=== PATIENT | male | born 1970 | race Caucasian/White ===

== ENCOUNTER 2020-05-12 23:35 | Emergency (ER) | payer MEDICAID ==
[~2020-05-12] VITALS: Ht 172.7 cm; Wt 90.7 kg
--- NOTE | 2020-05-12 23:51 | NUR ---
PT BIB FROM STREET C/O SUICIDAL IDEATION +PLAN TO CUT WRISTS. PT DENIES HI. PT AAOX4, VSS, RESPIRATIONS EVEN AND UNLABORED ON RA W/ NAD NOTED. PT CHANGED INTO GOWN, BELONGINGS PLACED TO LOCKER, CONNECTED TO THE MONITOR AND POX. SUICIDE PRECAUTIONS IMPLEMENTED. SITTER AT BEDSIDE FOR SAFETY
--- NOTE | 2020-05-13 00:01 | NUR ---
URINE COLLECTED AND SENT TO LAB
[2020-05-13 00:14] LABS: BASOPHILS # (AUTO) 0.1 /CMM (0.0-0.2); BASOPHILS % (AUTO) 0.7 % (0.0-2.0); EOSINOPHILS % (AUTO) 0.3 % (0.0-6.0); HEMATOCRIT 42 % (39-51); HEMOGLOBIN 13.8 g/dL (13.5-17.5); LYMPHOCYTES # (AUTO) 2.2 /CMM (0.8-4.8); LYMPHOCYTES % (AUTO) 16.8 % (20.0-44.0); MEAN CORPUSCULAR HGB CONC 33 g/dl (31.0-36.0); MEAN CORPUSCULAR VOLUME 87 fL (80-96); MONOCYTES # (AUTO) 1.1 /CMM (0.1-1.30); MONOCYTES % (AUTO) 8.6 % (2.0-12.0); NEUTROPHILS # (AUTO) 9.7 /CMM (1.8-8.9); NEUTROPHILS % (AUTO) 73.6 % (43.0-81.0); PLATELET COUNT (AUTO) 214 /CMM (150-450); RED BLOOD CELL COUNT(AUTO) 4.86 MIL/uL (4.5-6.0); WHITE BLOOD COUNT (AUTO) 13.1 K/uL (4.3-11.0)
[2020-05-13 00:15] LABS: APPEARANCE,URINE CLEAR (CLEAR); BILIRUBIN,URINE NEGATIVE (NEGATIVE); BLOOD, URINE NEGATIVE Ery/uL (NEGATIVE); COLOR,URINE YELLOW (YELLOW); KETONES,URINE NEGATIVE (NEGATIVE); LEUKOCYTE ESTERASE ,URINE NEGATIVE (NEGATIVE); NITRITE, URINE NEGATIVE (NEGATIVE); PROTEIN,URINE 30 mg/dl (NEGATIVE); UGLUCOSE NEGATIVE (NEGATIVE)
[2020-05-13 00:26] LABS: BACTERIA,URINE None seen /HPF (None Seen); RBC,URINE 0-2 /HPF (0-2); WBC,URINE 0-2 /HPF (0-3)
[2020-05-13 00:27] LABS: SQUAMOUS EPITHELIAL CELL,UR Few /HPF (None Seen)
[2020-05-13 01:01] LABS: CALCIUM, SERUM 8.8 mg/dL (8.5-10.1); CARBON DIOXIDE 26 mmol/L (21-32); CHLORIDE 105 mmol/L (98-107); CREATININE 1.2 mg/dL (0.6-1.3); GLUCOSE 113 mg/dL (74-106); POTASSIUM 3.5 mmol/L (3.5-5.1); SODIUM SERUM 141 mmol/L (136-145); UREA NITROGEN, BLOOD 25 mg/dL (7-18)
[2020-05-13 01:08] LABS: ALANINE AMINOTRANSFERASE 102 U/L (12-78); ALCOHOL, BLOOD < 3 mg/dL (0-0); ALKALINE PHOSPHATASE 88 U/L (46-116); ASPARTATE AMINOTRANSFERASE 128 U/L (15-37); BILIRUBIN,DIRECT 0.2 mg/dL (0.0-0.2); BILIRUBIN,TOTAL 0.7 mg/dL (0.2-1.0); TOTAL PROTEIN, SERUM 7.8 g/dL (6.4-8.2)
[2020-05-13 01:09] LABS: ACETAMINOPHEN 0 ug/ml (10-30); SALICYLATE 1.3 mg/dL (2.8-20.0)
--- NOTE | 2020-05-13 02:03 | NUR ---
PT DENIES SI/HI
--- NOTE | 2020-05-13 02:31 | NUR ---
Patient discharged to home in stable condition. Written and verbal after care instructions given. Patient verbalizes understanding of instruction. Pt ambulated with steady gait. vss. Denies SI and HI. aware.
[2020-05-13 05:04] VITALS: BP 131/79
== END 2020-05-13 05:04 | disposition home or self-care (01) ==
LOC: ER 23:39
DX: R45.851 Suicidal ideations (principal); I10 Essential (primary) hypertension; E11.9 Type 2 diabetes mellitus without complications; F20.9 Schizophrenia, unspecified
CPT/HCPCS: 36415; 80048; 80076; 80305; 80307; 80329; 81001; 85025; 99285; G0480; 81000-TC

== ENCOUNTER 2020-07-19 06:51 | Emergency (ER) | payer MEDICAID, OTHER ==
[~2020-07-19] VITALS: Ht 170.2 cm; Wt 79.4 kg
[2020-07-19] MEDS ORDERED: KETOROLAC TROMETHAMINE 15 MG/ML VIAL ONE (08:11)
[2020-07-19] MEDS ORDERED: LORAZEPAM 0.5 MG TABLET ONE (08:11)
[2020-07-19] MEDS: KETOROLAC TROMETHAMINE INJ 30 MG/ML VIAL IM ONE (08:17)
[2020-07-19] MEDS: LORAZEPAM 0.5 MG TABLET PO ONE (08:17)
--- NOTE | 2020-07-19 08:47 | NUR ---
Patient a/ox4, breathing even and unlabored, no sob noted. Ambulatory with steady gait. Patient given written and verbal discharge instructions. Patient verbalizes understanding of instructions. Patient is ambulatory with steady gait. Refuses offer of senior care placement. Patient given list of available shelters in surrounding area.
[2020-07-19 09:07] VITALS: BP 158/95
== END 2020-07-19 09:07 | disposition home or self-care (01) ==
LOC: ER 06:51
DX: M54.41 Lumbago with sciatica, right side (principal); G89.29 Other chronic pain; M25.571 Pain in right ankle and joints of right foot; F15.10 Other stimulant abuse, uncomplicated; R45.1 Restlessness and agitation; I10 Essential (primary) hypertension; E11.9 Type 2 diabetes mellitus without complications; Z88.6 Allergy status to analgesic agent
CPT/HCPCS: 73610; 73620; 96372; 99284; J1885

== ENCOUNTER 2020-07-21 06:03 | Emergency (ER) | payer OTHER ==
[~2020-07-21] VITALS: Ht 172.7 cm; Wt 72.6 kg
[2020-07-21] MEDS ORDERED: KETOROLAC TROMETHAMINE INJ 30 MG/ML VIAL ONE (06:27)
[2020-07-21] MEDS ORDERED: CLONIDINE HCL 0.1 MG TABLET ONE (06:27)
[2020-07-21] MEDS ORDERED: KETOROLAC TROMETHAMINE INJ 60 MG/2 ML VIAL IM ONE (06:30)
[2020-07-21] MEDS ORDERED: CLONIDINE HCL 0.1 MG TABLET PO ONE (06:30)
--- NOTE | 2020-07-21 06:34 | NUR ---
PT MEDICATED ORDERED
[2020-07-21 07:02] VITALS: BP 163/99
--- NOTE | 2020-07-21 07:03 | NUR ---
Patient discharged to home in stable condition. Written and verbal after care instructions given. Patient verbalizes understanding of instruction.pt. ambulatory with a steady gait
== END 2020-07-21 07:04 | disposition home or self-care (01) ==
LOC: ER 06:05
DX: M54.41 Lumbago with sciatica, right side (principal); G89.29 Other chronic pain; M25.571 Pain in right ankle and joints of right foot; M25.572 Pain in left ankle and joints of left foot; I10 Essential (primary) hypertension; E11.9 Type 2 diabetes mellitus without complications; F20.9 Schizophrenia, unspecified; Z88.6 Allergy status to analgesic agent
CPT/HCPCS: 96372; 99283; J1885

== ENCOUNTER 2020-07-21 09:29 | Emergency (ER) | payer OTHER ==
[~2020-07-21] VITALS: Ht 172.7 cm; Wt 72.6 kg
--- NOTE | 2020-07-21 09:29 | NUR ---
PT [address]IB[address] C/O AGITATION. PT IS AAOX2, NOT IN RESPIRATORY DISTRESS, V/S STABLE, KEPT RESTED AND COMFORTABLE. WILL CONTINUE TO MONITOR.
--- NOTE | 2020-07-21 09:33 | NUR ---
PT SEEN AND EXAMINED BY .
[2020-07-21] MEDS ORDERED: HALOPERIDOL LACTATE INJ 5 MG/ML VIAL ONE (09:37)
[2020-07-21] MEDS ORDERED: HALOPERIDOL LACTATE INJ 5 MG/ML VIAL IM ONE (10:00)
--- NOTE | 2020-07-21 16:11 | NUR ---
Patient given written and verbal discharge instructions. Patient verbalizes understanding of instructions. Patient is ambulatory with steady gait. Refuses offer of jail placement. Patient given list of available shelters in surrounding area.
[2020-07-21 16:21] VITALS: BP 146/88
== END 2020-07-21 16:22 | disposition home or self-care (01) ==
LOC: ER 09:35
DX: F20.9 Schizophrenia, unspecified (principal); F15.129 Other stimulant abuse with intoxication, unspecified; I10 Essential (primary) hypertension; E11.9 Type 2 diabetes mellitus without complications; G89.29 Other chronic pain; M54.9 Dorsalgia, unspecified; Z88.6 Allergy status to analgesic agent
CPT/HCPCS: 96372; 99283; J1630

== ENCOUNTER 2021-03-02 01:23 | Emergency (ER) | payer OTHER ==
[~2021-03-02] VITALS: Ht 172.7 cm; Wt 74.8 kg
[2021-03-02 01:25] VITALS: BP 156/100
--- NOTE | 2021-03-02 01:30 | NUR ---
PT BIBRA C/O BILATERAL LOWER LEG PAIN [id number]. PT AAOX4 BREATHING EVENLY AND UNLABORED. PT ATTACHED TO MONITOR AND POX. MD AT BEDSIDE. PT GIVEN BLANKET AND CALL LIGHT WITHIN REACH
--- NOTE | 2021-03-02 01:35 | NUR ---
Patient discharged to home in stable condition. Written and verbal after care instructions given. Patient verbalizes understanding of instruction. Pt ambulatory with a steady gait. Pt refused dc paperwork
[2021-03-02] MEDS ORDERED: TRAMADOL HCL 50 MG TABLET ONE (01:44)
[2021-03-02] MEDS ORDERED: TRAMADOL HCL 50 MG TABLET PO ONE (02:00)
== END 2021-03-02 01:35 | disposition home or self-care (01) ==
LOC: ER 01:25
DX: E11.42 Type 2 diabetes mellitus with diabetic polyneuropathy (principal); I10 Essential (primary) hypertension; Z88.6 Allergy status to analgesic agent; Z88.8 Allergy status to other drugs, medicaments and biological substances